=== PATIENT | male | born 2005 | race Hispanic/Latino ===

== ENCOUNTER 2024-05-02 14:01 | Emergency (ER) | payer OTHER, SELFPAY ==
--- NOTE | ~2024-05-02 | CT_ITS ---
EXAMINATION: CT soft tissue neck w con DATE: 05/02/2024 17:07 INDICATION: Right tonsillar swelling TECHNIQUE: Computed tomography (CT) of the neck was performed with 75 mL Omnipaque-350 intravenous co ntrast. Automated exposure control and iterative reconstruction technique were employed. The dose-manuel gth product was 490.37 mGy-cm. COMPARISON: None FINDINGS: Orbits are normal. The paranasal sinuses and mastoid air cells are clear. Submandibular and parotid g lands are symmetric. Thyroid gland is unremarkable. There are scattered normal-sized lymph nodes in t he neck, no lymphadenopathy. There is prominent asymmetric enlargement of the right palatine tonsil. There is streak artifact extending across the enlarged tonsil but no evident rim-enhancing abscess. T he epiglottis, aryepiglottic folds and retropharyngeal soft tissues are unremarkable. The vasculature is patent and normal in caliber. Airway is unremarkable. Superior mediastinum is unremarkable with n ormal small amount of residual thymic tissue in the anterior mediastinum. Lung apices are clear. Lik diogo positional slight reversal of the normal cervical doses. IMPRESSION: 1. Marked asymmetric enlargement of the right palatine tonsil consistent with tonsillitis but without evident abscess. Reviewed, dictated and finalized at location B. IMPRESSION: 1. Marked asymmetric enlargement of the right palatine tonsil consistent with t onsillitis but without evident abscess.
[2024-05-02 14:04] VITALS: BP 125/79; PULSE 100; RESP 14; TEMP 36.5; O2SAT 100
[2024-05-02 15:00] VITALS: RESP 18; O2SAT 99
[2024-05-02 15:08] VITALS: BP 132/80; PULSE 85; RESP 18; O2SAT 99
--- NOTE | 2024-05-02 15:09 | PC.NURSE ---
Pt denies any difficulty breathing or swallowing, denies pain. Reports noticing a different feeling in his throat since Tuesday.
[2024-05-02 15:39] LABS: Basophils Percent Auto 0.4 % (0.2-1.2); Eosinophils Absolute Auto 0.5 K/mm3 (0-0.3); Hematocrit 46.3 % (42.0-52.0); Hemoglobin 15.3 g/dL (14.0-18.0); Immature Granulocyte Absolute 0.02 K/mm3 (0.00-0.031); Immature Granulocyte Percent A 0.2 % (0-0.5); Lymphocytes Absolute Auto 3.04 K/mm3 (0.9-3.2); Lymphocytes Percent Auto 36.6 % (18.3-44.2); Mean Corpuscular Hemoglobin 29.7 pg (26-34); Mean Corpuscular Volume 89.7 fl (80-100); Mean Platelet Volume 9.8 fl (7.4-10.4); Monocytes Absolute Auto 0.6 K/mm3 (0.1-0.6); Monocytes Percent Auto 7.3 % (2.6-8.5); Neutrophils Absolute Auto 4.1 K/mm3 (1.3-6.7); Neutrophils Percent Auto 49.5 % (45.5-73.1); Platelet Count Result 311 k/mm3 (150-375); Red Blood Count 5.16 M/mm3 (4.6-6.20); Red Cell Distribution Width 12.7 % (11.5-14.5); White Blood Count 8.3 K/mm3 (4.5-10.0)
[2024-05-02 15:49] LABS: Alanine Aminotransferase 18 U/L (6-50); Albumin Level 4.5 g/dL (3.7-5.6); Alkaline Phosphatase 64 U/L (58-237); Anion Gap 11 mmol/L (4-12); Aspartate Amino Transferase 29 U/L (17-59); Bilirubin,Total 0.5 mg/dL (0.2-1.3); Blood Urea Nitrogen 12 mg/dL (8-21); Calcium 9.4 mg/dL (8.9-10.7); Carbon Dioxide 27 mmol/L (22-30); Chloride 100 mmol/L (98-107); Estimated CRCL calculation 151 ml/min; Estimated Glomerular Filt Rate > 60; Glucose 90 mg/dL (65-110); Potassium 3.8 mmol/L (3.4-5.0); Sodium 138 mmol/L (134-143)
[2024-05-02 15:51] LABS: Monoscreen Negative (Negative); Negative Monotest Control Negative (Negative); Positive Monotest Control Positive (Positive)
[2024-05-02 16:03] LABS: Strep Group A RT-PCR NOT DETECTED (Negative)
[2024-05-02 16:54] VITALS: BP 122/80; PULSE 94; RESP 20; O2SAT 98
[2024-05-02] MEDS: dexAMETHasone 10 MG/10 ML INTENSOL CONC (*BKC) PO (17:39)
--- NOTE | 2024-05-02 18:12 | ED.GENADULT ---
HPI - General Adult General Chief complaint: Unspecified Stated complaint: swollen tonsils Time Seen by Provider: 05/02/24 15:01 History of Present Illness HPI narrative: Patient is a 18-year-old male who presents ER with tonsillar swelling on the right side. He noticed it was swelling over last couple of days but when he went to be evaluated at his school clinically sent him here to rule out peritonsillar abscess. He reports a friend with recent diagnosis of pharyngitis but does not believe it was strep throat. No known exposure to mono. No fevers or chills. No difficulty breathing or swelling but does have a sore throat. Related Data Allergies Allergy/AdvReac Type Severity Reaction Status Date / Time amoxicillin Allergy Hives Verified 05/02/24 14:02 Review of Systems Constitutional: Constitutional: Reports no additional constitutional complaints ENT: Denies nasal congestion, Reports sore throat, Reports throat swelling (Right tonsil) and Denies tongue swelling Cardiovascular: Cardiovascular: Reports no additional cardiovascular complaints Respiratory: Respiratory: Reports no additional respiratory complaints PMF Past Medical History Medical History (Updated 05/02/24 @ 18:16 by Clayton Drew MD) Healthy adult male Surgical History Surgical History (Updated 05/02/24 @ 18:14 by Clayton Drew MD) No history of previous surgery Exam Narrative: GENERAL: Well-appearing, well-nourished, and in no acute distress. HEAD: Normocephalic, atraumatic. ENT: Mucous membranes moist. Right-sided tonsillar hypertrophy and directly abutting the uvula without significant midline shift. Normal appearing left tonsil. No exudate on either tonsil. NECK: Supple. CHEST: Clear to auscultation. No respiratory distress. HEART: Regular rate and rhythm. Normal peripheral pulses. EXTREMITIES: Normal range of motion. No edema. NEURO: Alert and oriented x3. PSYCH: Normal mood and affect. Course Course Emergency Course: Motley and strep were negative. Oral glucagon for swelling. No [employer] on CT scan. Patient given reassurance. Vital Signs Vital signs: Vital Signs Temperature 97.7 F 05/02/24 14:04 Pulse Rate 100 05/02/24 14:04 Respiratory Rate 14 05/02/24 14:04 Blood Pressure 125/79 05/02/24 14:04 Pulse Oximetry 100 05/02/24 14:04 Oxygen Delivery Room Air 05/02/24 14:04 Temperature 97.7 F 05/02/24 14:04 Pulse Rate 94 05/02/24 16:54 Respiratory Rate 20 05/02/24 16:54 Blood Pressure 122/80 05/02/24 16:54 Pulse Oximetry 98 05/02/24 16:54 Oxygen Delivery Room Air 05/02/24 14:04 Medical Decision Making Vital Signs Vital Signs: Vital Signs Temperature 97.7 F 05/02/24 14:04 Pulse Rate 100 05/02/24 14:04 Respiratory Rate 14 05/02/24 14:04 Blood Pressure 125/79 05/02/24 14:04 Pulse Oximetry 100 05/02/24 14:04 Oxygen Delivery Room Air 05/02/24 14:04 Temperature 97.7 F 05/02/24 14:04 Pulse Rate 94 05/02/24 16:54 Respiratory Rate 20 05/02/24 16:54 Blood Pressure 122/80 05/02/24 16:54 Pulse Oximetry 98 05/02/24 16:54 Oxygen Delivery Room Air 05/02/24 14:04 Lab Data 05/02/24 15:30 05/02/24 15:30 Labs: Lab Results 05/02/24 Range/Units 15:30 WBC 8.3 (4.5-10.0) K/mm3 RBC 5.16 (4.6-6.20) M/mm3 Hgb 15.3 (14.0-18.0) g/dL Hct 46.3 (42.0-52.0) % MCV 89.7 (80-100) fl MCH 29.7 (26-34) pg MCHC 33.0 (32-36) g/dl RDW 12.7 (11.5-14.5) % Plt Count 311 (150-375) k/mm3 MPV 9.8 (7.4-10.4) fl Immature Gran % (Auto) 0.2 (0-0.5) % Neut % (Auto) 49.5 (45.5-73.1) % Lymph % (Auto) 36.6 (18.3-44.2) % Motley % (Auto) 7.3 (2.6-8.5) % Eos % (Auto) 6.0 H (0-4.4) % Baso % (Auto) 0.4 (0.2-1.2) % Lymph # (Auto) 3.04 (0.9-3.2) K/mm3 Motley # (Auto) 0.6 (0.1-0.6) K/mm3 Eos # (Auto) 0.5 H (0-0.3) K/mm3 Baso # (Auto) 0.0 (0.0-0.1) K/mm3 Abs Immat Gran (
[2024-05-02 18:29] VITALS: BP 128/76; PULSE 80; RESP 16; TEMP 36.8; O2SAT 100
== END 2024-05-02 18:31 | disposition home or self-care (01) ==
PROVIDERS: Emergency Provider Emergency Medicine
DX: J03.90 Acute tonsillitis, unspecified (principal)
CPT/HCPCS: 36415; 70491; 80053; 85025; 86308; 87651; 99284; J8540; Q9967